=== PATIENT | female | born 1995 | race African-American/Black ===

== ENCOUNTER 2016-08-18 10:08 | Emergency (ER) | payer MEDICAID, OTHER ==
[~2016-08-18] VITALS: Ht 170.2 cm; Wt 65.0 kg
[2016-08-18 10:09] VITALS: BP 125/54; PULSE 70; RESP 15; TEMP 97.8; O2SAT 98
[2016-08-18] MEDS ORDERED: PREN29TA PO (10:30)
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
[2016-09-15] MEDS ORDERED: METR500T10 PO (15:18)
[2016-09-16] MEDS ORDERED: ZITH1POW PO (14:09)
[2016-10-08] MEDS ORDERED: PREN29TA PO (11:00)
[2016-10-08] MEDS ORDERED: ZOFR4TAB PO (11:01)
== END 2016-08-18 10:49 | disposition home or self-care (01) ==
LOC: NEPD 10:08
DX: O26.91 Pregnancy related conditions, unspecified, first trimester (principal); S29.012A Strain of muscle and tendon of back wall of thorax, initial encounter; Z3A.01 Less than 8 weeks gestation of pregnancy; X58.XXXA Exposure to other specified factors, initial encounter; Y93.89 Activity, other specified; Y92.9 Unspecified place or not applicable; Y99.8 Other external cause status
CPT/HCPCS: 99283

== ENCOUNTER 2016-10-13 17:49 | Emergency (ER) | payer OTHER ==
[~2016-10-13] VITALS: Ht 170.2 cm; Wt 70.0 kg
[~2016-10-13 17:49] MED LIST: PREN29TA PO; ZOFR4TAB PO
[2016-10-13 18:12] VITALS: BP 111/53; PULSE 86; RESP 18; TEMP 98.3; O2SAT 99
[2016-10-13 19:05] VITALS: RESP 16; O2SAT 99
[2016-10-13 19:10] LABS: AUTOMATED NEUTROPHIL # 9.7 TH/MM3 (1.8-7.7); BASOPHIL % 0.2 % (0.0-2.0); EOSINOPHIL # 0.4 TH/MM3 (0-0.4); EOSINOPHIL % 2.8 % (0.0-4.0); HEMATOCRIT 28.1 % (35.0-46.0); HEMO FLAGS DIFF FINAL; LYMPH % 14.5 % (9.0-44.0); LYMPHOCYTE # 1.9 TH/MM3 (1.0-4.8); MEAN CELL VOLUME 88.2 FL (80.0-100.0); MEAN CORPUSCULAR HEMOGLOBIN 29.5 PG (27.0-34.0); MEAN CORPUSCULAR HGB CONC 33.4 % (32.0-36.0); MONO % 9.1 % (0.0-8.0); NEUT % 73.4 % (16.0-70.0); PLATELET COUNT 151 TH/MM3 (150-450); RED BLOOD COUNT 3.19 MIL/MM3 (4.00-5.30); RED CELL DISTRIBUTION WIDTH 14.7 % (11.6-17.2); WHITE BLOOD COUNT 13.1 TH/MM3 (4.0-11.0)
[2016-10-13 19:31] LABS: ANION GAP 7 MEQ/L (5-15); AST (GOT) 38 U/L (16-38); BICARBONATE 25.5 MEQ/L (21.0-32.0); BLOOD UREA NITROGEN 5 MG/DL (7-18); CHLORIDE 103 MEQ/L (98-107); GLOMERULAR FILTRATION RATE 160 ML/MIN (>89); POTASSIUM 3.8 MEQ/L (3.5-5.1); SODIUM (NA) 135 MEQ/L (136-145)
[2016-10-13 19:32] LABS: ALT (GPT) 61 U/L (9-42)
[2016-10-13 19:34] LABS: ALKALINE PHOSPHATASE 44 U/L (45-117); TOTAL BILIRUBIN ADULT 0.1 MG/DL (0.2-1.0)
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
[2016-10-13] MEDS ORDERED: SODIUM CHLOR 0.9% 1000 ML INJ 1,000 ML IV SCH (19:51)
[2016-10-13] MEDS ORDERED: ONDANSETRON HCL 4 MG/2 ML VIAL IVP ONE (20:00)
[2016-10-13] MEDS ORDERED: ZOFR4TAB3 SL (20:07)
[2016-10-13 20:19] LABS: BETA HCG QUANT 18121 MIU/ML (0-5)
== END 2016-10-13 21:50 | disposition home or self-care (01) ==
LOC: NEPC 17:49
DX: R10.9 Unspecified abdominal pain (principal); R11.2 Nausea with vomiting, unspecified
CPT/HCPCS: 80053; 84702; 85025; 96361; 96374; 99284; J2405; J7030

== ENCOUNTER → 2016-10-22 | Outpatient (CLI) | payer OTHER ==
[~2016-10-22] MED LIST changes: +ZOFR4TAB3 SL
== END ==
LOC: HPND 08:36
PROVIDERS: ATTEND Obstetrics & Gynecology
DX: O35.8XX0 Maternal care for other (suspected) fetal abnormality and damage, not applicable or unspecified (principal); Z3A.18 18 weeks gestation of pregnancy
CPT/HCPCS: 76805; 76817

== ENCOUNTER 2016-11-08 23:08 | Emergency (ER) | payer OTHER ==
[~2016-11-08 23:08] MED LIST changes: +PNV11TAB PO; -PREN29TA PO; -ZOFR4TAB PO; -ZOFR4TAB3 SL
[2016-11-08 23:10] VITALS: BP 123/58; PULSE 82; RESP 16; TEMP 98.5; O2SAT 98
[2016-11-08] MEDS ORDERED: SODIUM CHLOR 0.9% 1000 ML INJ 1,000 ML IV SCH (23:29)
[2016-11-08] MEDS ORDERED: SODIUM CHLORIDE 0.9% FLUSH 10 ML FLUSH IVF PRN (23:30)
[2016-11-08] MEDS ORDERED: ONDANSETRON HCL 4 MG/2 ML VIAL IVP ONE (23:30)
[2016-11-08 23:55] VITALS: RESP 17; O2SAT 98
[2016-11-09] VITALS: BP 117/57; PULSE 78; RESP 20; O2SAT 100
[2016-11-09 00:02] LABS: AUTOMATED NEUTROPHIL # 7.7 TH/MM3 (1.8-7.7); BASOPHIL % 0.4 % (0.0-2.0); EOSINOPHIL # 0.4 TH/MM3 (0-0.4); EOSINOPHIL % 3.6 % (0.0-4.0); HEMATOCRIT 29.4 % (35.0-46.0); HEMO FLAGS DIFF FINAL; LYMPH % 16.7 % (9.0-44.0); LYMPHOCYTE # 1.8 TH/MM3 (1.0-4.8); MEAN CELL VOLUME 89.9 FL (80.0-100.0); MEAN CORPUSCULAR HEMOGLOBIN 31.9 PG (27.0-34.0); MEAN CORPUSCULAR HGB CONC 35.5 % (32.0-36.0); MONO % 8.9 % (0.0-8.0); NEUT % 70.4 % (16.0-70.0); PLATELET COUNT 151 TH/MM3 (150-450); RED BLOOD COUNT 3.27 MIL/MM3 (4.00-5.30); RED CELL DISTRIBUTION WIDTH 14.3 % (11.6-17.2); WHITE BLOOD COUNT 10.9 TH/MM3 (4.0-11.0)
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
[2016-11-09 00:13] LABS: APTT (PATIENT) 24.4 SEC (24.3-30.1); INTERNATIONAL NORMALIZED RATIO 0.9 RATIO; PROTHROMBIN TIME - PATIENT 9.8 SEC (9.8-11.6)
[2016-11-09 00:36] LABS: ANION GAP 7 MEQ/L (5-15); AST (GOT) 28 U/L (16-38); BICARBONATE 24.9 MEQ/L (21.0-32.0); BLOOD UREA NITROGEN 8 MG/DL (7-18); CHLORIDE 105 MEQ/L (98-107); GLOMERULAR FILTRATION RATE 160 ML/MIN (>89); POTASSIUM 3.7 MEQ/L (3.5-5.1); SODIUM (NA) 137 MEQ/L (136-145)
[2016-11-09 00:37] LABS: ALT (GPT) 57 U/L (9-42)
[2016-11-09 00:39] LABS: ALKALINE PHOSPHATASE 51 U/L (45-117); TOTAL BILIRUBIN ADULT 0.2 MG/DL (0.2-1.0)
[2016-11-09] MEDS ORDERED: REGL5TAB PO (02:04)
[2016-11-09] MEDS ORDERED: FAMO20TA2 PO (02:06)
[2016-11-09] MEDS ORDERED: ACETAMINOPHEN 325 MG TAB PO ONE (02:15)
[2016-11-09 02:36] LABS: BLOOD, URINE NEG (NEG); GLUCOSE,URINE NEG (NEG); KETONE, URINE NEG (NEG); MUCUS URINE FEW /lpf (OCC); NITRITE,URINE NEG (NEG); SQUAMOUS EPITHELIAL CELL URINE 3 /hpf (0-5); TRANSITIONAL EPI CELLS, URINE 1 /hpf; URINE COLOR LIGHT-YELLOW (YELLW/STRAW)
[2016-11-09 02:37] LABS: COMMENT (UR) CULT NOT INDICATED; CULTURE IF INDICATED CULT NOT INDICATED
== END 2016-11-09 03:15 | disposition home or self-care (01) ==
LOC: NEPE 23:08
DX: O21.2 Late vomiting of pregnancy (principal); Z3A.20 20 weeks gestation of pregnancy; K21.9 Gastro-esophageal reflux disease without esophagitis
CPT/HCPCS: 80053; 81001; 83690; 85025; 85610; 85730; 86850; 86900; 86901; 96374; 99285; J2405; J7030

== ENCOUNTER → 2016-11-26 | Outpatient (CLI) | payer OTHER ==
[~2016-11-26] MED LIST changes: +FAMO20TA2 PO; +FERRTAB2 PO; +REGL10TA5 PO; +REGL5TAB PO
== END ==
LOC: HPND 09:44
PROVIDERS: ATTEND Obstetrics & Gynecology
DX: O35.8XX0 Maternal care for other (suspected) fetal abnormality and damage, not applicable or unspecified (principal); Z3A.23 23 weeks gestation of pregnancy
CPT/HCPCS: 76816; 76817

== ENCOUNTER 2016-11-29 23:39 | Emergency (ER) | payer OTHER ==
[~2016-11-29 23:39] MED LIST changes: -FERRTAB2 PO; -REGL10TA5 PO
[2016-11-30] MEDS ORDERED: PROMETHAZINE INJ 25 MG/ML VIAL IM ONE (00:45)
[2016-11-30] MEDS ORDERED: REGL10TA5 PO (00:48)
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
[2016-12-24] MEDS ORDERED: FAMO20TA2 PO (13:23)
[2016-12-24] MEDS ORDERED: PNV11TAB PO (13:23)
[2016-12-24] MEDS ORDERED: REGL10TA5 PO (13:23)
[2017-01-13] MEDS ORDERED: PNV11TAB PO (11:19)
[2017-01-27] MEDS ORDERED: FERRTAB2 PO (09:53)
== END 2016-11-30 02:00 | disposition home or self-care (01) ==
LOC: HOBED 23:39
DX: O21.2 Late vomiting of pregnancy (principal); Z3A.23 23 weeks gestation of pregnancy
CPT/HCPCS: 96372; 99284; J2550

== ENCOUNTER 2016-12-02 17:33 | Emergency (ER) | payer OTHER ==
[~2016-12-02 17:33] MED LIST changes: +REGL10TA5 PO
[2016-12-02 19:01] VITALS: BP 125/58; PULSE 58; RESP 15; TEMP 98.8; O2SAT 99
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
[2016-12-02 22:28] VITALS: BP 118/58; PULSE 82; RESP 16; O2SAT 98
[2016-12-02] MEDS ORDERED: PROMETHAZINE INJ 25 MG/ML VIAL IM ONE (22:30)
[2016-12-02 22:52] LABS: AUTOMATED NEUTROPHIL # 9.5 TH/MM3 (1.8-7.7); BASOPHIL % 0.3 % (0.0-2.0); EOSINOPHIL # 0.3 TH/MM3 (0-0.4); EOSINOPHIL % 2.3 % (0.0-4.0); HEMATOCRIT 27.7 % (35.0-46.0); HEMO FLAGS DIFF FINAL; LYMPH % 13.5 % (9.0-44.0); LYMPHOCYTE # 1.7 TH/MM3 (1.0-4.8); MEAN CELL VOLUME 90.6 FL (80.0-100.0); MEAN CORPUSCULAR HEMOGLOBIN 31.6 PG (27.0-34.0); MEAN CORPUSCULAR HGB CONC 34.8 % (32.0-36.0); MONO % 10.2 % (0.0-8.0); NEUT % 73.7 % (16.0-70.0); PLATELET COUNT 147 TH/MM3 (150-450); RED BLOOD COUNT 3.06 MIL/MM3 (4.00-5.30); RED CELL DISTRIBUTION WIDTH 13.7 % (11.6-17.2); WHITE BLOOD COUNT 12.9 TH/MM3 (4.0-11.0)
[2016-12-02 23:10] LABS: ALT (GPT) 25 U/L (9-42); ANION GAP 7 MEQ/L (5-15); AST (GOT) 23 U/L (16-38); BICARBONATE 24.6 MEQ/L (21.0-32.0); BLOOD UREA NITROGEN 8 MG/DL (7-18); CHLORIDE 104 MEQ/L (98-107); GLOMERULAR FILTRATION RATE 190 ML/MIN (>89); POTASSIUM 3.7 MEQ/L (3.5-5.1); SODIUM (NA) 136 MEQ/L (136-145)
[2016-12-02 23:12] LABS: ALKALINE PHOSPHATASE 62 U/L (45-117); TOTAL BILIRUBIN ADULT 0.2 MG/DL (0.2-1.0)
[2016-12-02 23:16] LABS: APTT (PATIENT) 25.9 SEC (24.3-30.1); INTERNATIONAL NORMALIZED RATIO 0.9 RATIO; PROTHROMBIN TIME - PATIENT 9.8 SEC (9.8-11.6)
--- NOTE | 2016-12-02 23:29 | PD ---
Physical Exam Date Seen by Provider: Dec 02, 2016 Narrative GENERAL: SKIN: Warm and dry. HEAD: Atraumatic. Normocephalic. EYES: Pupils equal and round. No scleral icterus. No injection or drainage. ENT: No nasal bleeding or discharge. Mucous membranes pink and moist. NECK: Trachea midline. No JVD. CARDIOVASCULAR: Regular rate and rhythm. RESPIRATORY: No accessory muscle use. Clear to auscultation. Breath sounds equal bilaterally. GASTROINTESTINAL: Abdomen soft, non-tender, nondistended. MUSCULOSKELETAL: Extremities without clubbing, cyanosis, or edema. No obvious deformities. NEUROLOGICAL: Awake and alert. No obvious cranial nerve deficits. Motor grossly within normal limits. Five out of 5 muscle strength in the arms and legs. Normal speech. PSYCHIATRIC: Appropriate mood and affect; insight and judgment normal. Data Data Last Documented VS Vital Signs Date Time Temp Pulse Resp B/P Pulse Ox O2 Delivery O2 Flow Rate FiO2 12/02/16 22:28 82 16 118/58 98 Room Air 12/02/16 19:01 98.8 Orders Ob Poc Ultrasound (12/02/16 ) Complete Blood Count With Diff (12/02/16 22:19) Comprehensive Metabolic Panel (12/02/16 22:19) Prothrombin Time / Inr (Pt) (12/02/16 22:20) Act Partial Throm Time (Ptt) (12/02/16 22:20) Promethazine Inj (Phenergan Inj) (12/02/16 22:30) Labs Laboratory Tests Test 12/02/16 22:37 White Blood Count 12.9 TH/MM3 Red Blood Count 3.06 MIL/MM3 Hemoglobin 9.7 GM/DL Hematocrit 27.7 % Mean Corpuscular Volume 90.6 FL Mean Corpuscular Hemoglobin 31.6 PG Mean Corpuscular Hemoglobin 34.8 % Concent Red Cell Distribution Width 13.7 % Platelet Count 147 TH/MM3 Mean Platelet Volume 10.3 FL Neutrophils (%) (Auto) 73.7 % Lymphocytes (%) (Auto) 13.5 % Monocytes (%) (Auto) 10.2 % Eosinophils (%) (Auto) 2.3 % Basophils (%) (Auto) 0.3 % Neutrophils # (Auto) 9.5 TH/MM3 Lymphocytes # (Auto) 1.7 TH/MM3 Monocytes # (Auto) 1.3 TH/MM3 Eosinophils # (Auto) 0.3 TH/MM3 Basophils # (Auto) 0.0 TH/MM3 CBC Comment DIFF FINAL Differential Comment Prothrombin Time 9.8 SEC Prothromb Time International 0.9 RATIO Ratio Activated Partial 25.9 SEC Thromboplast Time Sodium Level 136 MEQ/L Potassium Level 3.7 MEQ/L Chloride Level 104 MEQ/L Carbon Dioxide Level 24.6 MEQ/L Anion Gap 7 MEQ/L Blood Urea Nitrogen 8 MG/DL Creatinine 0.50 MG/DL Estimat Glomerular Filtration 190 ML/MIN Rate Random Glucose 77 MG/DL Calcium Level 8.6 MG/DL Total Bilirubin 0.2 MG/DL Aspartate Amino Transf 23 U/L (AST/SGOT) Alanine Aminotransferase 25 U/L (ALT/SGPT) Alkaline Phosphatase 62 U/L Total Protein 6.8 GM/DL Albumin 3.0 GM/DL [facility] Medical Record Reviewed: Yes Supervised Visit with JACKY: No Narrative Course PATIENT HD STABLE, HB IS SIMILAR TO WHAT IT HAS BEEN FOR PAST 3 MONTHS AND THUS NOT CLINICALLY SIGNIFICANT BLOOD LOSS NOTED. NO FURTHER HEMATOCHEZIA EPISODES MOST LIKELY DUE TO MARTIN CALLE Diagnosis Primary Impression: Hematemesis Qualified Code: K92.0 - Hematemesis with nausea Patient Instructions: General Instructions, Early Labor Signs (ED), Movement (ED) Departure Forms: Tests/Procedures Disposition: 01 DISCHARGE HOME Condition: Stable Ronald Dorado MD Dec 02, 2016 23:29
[2016-12-24] MEDS ORDERED: REGL10TA5 PO (13:23)
[2016-12-24] MEDS ORDERED: FAMO20TA2 PO (13:23)
[2016-12-24] MEDS ORDERED: PNV11TAB PO (13:23)
[2017-01-13] MEDS ORDERED: PNV11TAB PO (11:19)
[2017-01-27] MEDS ORDERED: FERRTAB2 PO (09:53)
== END 2016-12-03 00:24 | disposition home or self-care (01) ==
LOC: HOBED 17:33 → NEPC 12-03 00:24
DX: O26.892 Other specified pregnancy related conditions, second trimester (principal); K92.0 Hematemesis; Z3A.24 24 weeks gestation of pregnancy
CPT/HCPCS: 76815; 80053; 85025; 85610; 85730; 96372; 99285; J2550

== ENCOUNTER → 2016-12-16 | Outpatient (CLI) | payer OTHER ==
[~2016-12-16] MED LIST changes: +CEFU1TAB20 PO; +FERRTAB2 PO
== END ==
LOC: HPND 09:44
PROVIDERS: ATTEND Obstetrics & Gynecology
DX: O35.1XX0 Maternal care for (suspected) chromosomal abnormality in fetus, not applicable or unspecified (principal)
CPT/HCPCS: 76811

== ENCOUNTER → 2017-01-01 | Outpatient (CLI) | payer OTHER ==
[~2017-01-01] MED LIST changes: -REGL5TAB PO
== END ==
LOC: HPND 08:20
PROVIDERS: ATTEND Obstetrics & Gynecology
DX: O35.1XX0 Maternal care for (suspected) chromosomal abnormality in fetus, not applicable or unspecified (principal)
CPT/HCPCS: 76815

== ENCOUNTER → 2017-01-13 | Outpatient (CLI) | payer OTHER | LOC: HPND 08:34 | PROVIDERS: ATTEND Obstetrics & Gynecology | DX: O35.1XX0 Maternal care for (suspected) chromosomal abnormality in fetus, not applicable or unspecified (principal) | CPT/HCPCS: 76816 ==

== ENCOUNTER 2017-01-20 13:23 | Emergency (ER) | payer OTHER ==
[~2017-01-20 13:23] MED LIST changes: -CEFU1TAB20 PO; -FERRTAB2 PO
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
[2017-01-20] MEDS ORDERED: ACETAMINOPHEN 325 MG TAB PO ONE (14:30)
[2017-01-20 15:13] VITALS: RESP 16
[2017-01-27] MEDS ORDERED: FERRTAB2 PO (09:53)
== END 2017-01-20 15:15 | disposition home or self-care (01) ==
LOC: HOBED 13:23
DX: O26.892 Other specified pregnancy related conditions, second trimester (principal); R10.2 Pelvic and perineal pain; Z3A.31 31 weeks gestation of pregnancy
CPT/HCPCS: 99283

== ENCOUNTER → 2017-02-03 | Outpatient (CLI) | payer OTHER ==
[~2017-02-03] MED LIST changes: +CEFU1TAB20 PO; +FERRTAB2 PO
== END ==
LOC: HPND 08:44
PROVIDERS: ATTEND Obstetrics & Gynecology
DX: O35.1XX0 Maternal care for (suspected) chromosomal abnormality in fetus, not applicable or unspecified (principal)
CPT/HCPCS: 76816

== ENCOUNTER 2017-02-05 10:21 | Emergency (ER) | payer OTHER ==
[~2017-02-05 10:21] MED LIST changes: -CEFU1TAB20 PO
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
[2017-02-05 12:05] LABS: BACTERIA, URINE FEW /hpf; BLOOD, URINE NEG (NEG); COMMENT (UR) CULTURE INDICATED; CULTURE IF INDICATED CULTURE INDICATED; GLUCOSE,URINE NEG (NEG); KETONE, URINE NEG (NEG); MUCUS URINE FEW /lpf (OCC); NITRITE,URINE NEG (NEG); PH, URINE 8.5 (5.0-8.5); SQUAMOUS EPITHELIAL CELL URINE 5 /hpf (0-5); URINE COLOR YELLOW (YELLW/STRAW)
[2017-02-05] MEDS ORDERED: CEFU1TAB20 PO (12:25)
[2017-02-05 15:31] LABS: CHLAMYDIA PCR DETECTED (NOT DETECT); NEISSERIA PCR NOT DETECTED (NOT DETECT)
[2017-02-15] MEDS ORDERED: CEFU1TAB20 PO (16:50)
== END 2017-02-05 12:49 | disposition home or self-care (01) ==
LOC: HOBED 10:21
DX: O23.43 Unspecified infection of urinary tract in pregnancy, third trimester (principal); B96.89 Other specified bacterial agents as the cause of diseases classified elsewhere; Z3A.33 33 weeks gestation of pregnancy
CPT/HCPCS: 59025; 81001; 87086; 87210; 87491; 87591

== ENCOUNTER 2017-07-19 22:24 | Emergency (ER) | payer OTHER ==
[~2017-07-19] VITALS: Ht 170.2 cm; Wt 72.3 kg
[~2017-07-19 22:24] MED LIST changes: +CEFU1TAB20 PO
[2017-07-19 22:33] VITALS: BP 119/58; PULSE 71; RESP 18; TEMP 97.8; O2SAT 98
[2017-07-20] MEDS ORDERED: IBUPROFEN 800 MG TAB PO ONE (00:45)
[2017-07-20] MEDS ORDERED: CYCLOBENZAPRINE HCL 10 MG TAB PO ONE (00:45)
[2017-07-20] MEDS ORDERED: CYCL10TA PO (00:54)
[2017-07-20] MEDS ORDERED: IBUP1TAB7 PO (00:54)
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
== END 2017-07-20 01:19 | disposition home or self-care (01) ==
LOC: NEPD 22:24
DX: S29.012A Strain of muscle and tendon of back wall of thorax, initial encounter (principal); X50.9XXA Other and unspecified overexertion or strenuous movements or postures, initial encounter; Y93.E6 Activity, residential relocation
CPT/HCPCS: 99283